=== PATIENT | female | born 1940 | race Caucasian/White ===

== ENCOUNTER 2018-04-22 19:27 | Emergency (ER) | payer MEDICARE, OTHER ==
[~2018-04-22] VITALS: Ht 162.6 cm; Wt 64.5 kg
[2018-04-22 20:23] LABS: BASOPHILS # (AUTO) 0.01 x10^3/uL (0-0.1); BASOPHILS % (AUTO) 0 % (0-1); EOSINOPHILS # (AUTO) 0.01 x10^3/uL (0-0.4); EOSINOPHILS % (AUTO) 0 % (1-7); LYMPHOCYTES # (AUTO) 0.87 x10^3/uL (1-3.4); LYMPHOCYTES % (AUTO) 8 % (22-44); MD NO; MEAN CORPUSCULAR HEMOGLOBIN 29.6 pg (27.0-34.8); MEAN PLATELET VOLUME 8.4 fL (7.4-10.4); MONOCYTES # (AUTO) 0.51 x10^3/uL (0.2-0.8); MONOCYTES % (AUTO) 5 % (2-9); NEUTROPHILS # (AUTO) 9.31 x10^3/uL (1.8-6.8); NEUTROPHILS % (AUTO) 87 % (42-75); PLATELET COUNT 262 x10^3/uL (130-400); RED BLOOD COUNT 5.08 x10^6/uL (3.82-5.3); RED CELL DISTRIBUTION WIDTH 16.6 % (9.6-15.2)
[2018-04-22 20:31] LABS: INTERNATIONAL NORMALIZED RATIO 1.01 (0.93-1.1); PROTHROMBIN TIME 10.4 Seconds (9.6-11.5)
[2018-04-22 20:32] LABS: ALANINE AMINOTRANSFERASE 20 U/L (12-78); ALBUMIN 3.1 g/dL (3.4-5.0); ANION GAP 6 mmol/L (5-15); CALCIUM 8.5 mg/dL (8.5-10.1); CHLORIDE 109 mmol/L (98-107); CREATININE 0.84 mg/dL (0.55-1.02)
[2018-04-22 20:37] LABS: ALKALINE PHOSPHATASE 108 U/L (45-117); BILIRUBIN,TOTAL 0.4 mg/dL (0.2-1.0); TOTAL PROTEIN 6.6 g/dL (6.4-8.2); TROPONIN I < 0.015 ng/mL (0.000-0.045)
[2018-04-22] MEDS ORDERED: SODIUM CHLORIDE 0.9% 1,000ML IVBOLUS ONE (21:30)
[2018-04-22] MEDS ORDERED: SODIUM CHLORIDE FLUSH 10ML SYR IVF ONE (21:30)
[2018-04-22 21:47] LABS: MICROSCOPIC INDICATED
[2018-04-22 22:05] LABS: CULTURE INDICATED? YES
[2018-04-22 22:42] VITALS: BP 152/58
== END 2018-04-22 22:46 | disposition home or self-care (01) ==
LOC: ED 21:18
DX: S30.0XXA Contusion of lower back and pelvis, initial encounter (principal); G89.11 Acute pain due to trauma; M54.5 Low back pain; R42 Dizziness and giddiness; E86.0 Dehydration; I10 Essential (primary) hypertension; I25.2 Old myocardial infarction; X58.XXXA Exposure to other specified factors, initial encounter; Y93.89 Activity, other specified; Y99.8 Other external cause status; Y92.89 Other specified places as the place of occurrence of the external cause
CPT/HCPCS: 36415; 70450; 71045; 72110; 80053; 81001; 84484; 85025; 85610; 85730; 87086; 93005; 96360; 99285; J7030

== ENCOUNTER 2018-09-14 08:25 | Inpatient (IN) | payer MEDICARE, OTHER ==
[~2018-09-14] VITALS: Ht 170.2 cm; Wt 95.0 kg
--- NOTE | 2018-09-14 08:43 | NUR ---
BIB [facility] FOUND BY FAMILY AT 0745 UNACCOOUNTED FOR TRAZADONE AND BACLAFIN TABS NOTED PURPOSFULL MOVEMENT LIMITED VERBALE RESPONSE INCONTINENT OF STOOL AND URINE PT CLEANED AND CLOTHING REMOVED VITAL SIGNS WITH IN NORMAL LIMITS
--- NOTE | 2018-09-14 09:26 | NUR ---
FAMILY TO THE BS PT RECOGNIZING FAMILY BY SIGHT REMAINS SLOW TO RESPOND
[2018-09-14] MEDS ORDERED: SODIUM CHLORIDE FLUSH 10ML SYR IVF ONE (09:30)
[2018-09-14] MEDS ORDERED: SODIUM CHLORIDE 0.9% 1,000ML IVBOLUS ONE (09:30)
[2018-09-14 10:07] LABS: BASOPHILS # (AUTO) 0.03 x10^3/uL (0-0.1); BASOPHILS % (AUTO) 0 % (0-1); EOSINOPHILS # (AUTO) 0.07 x10^3/uL (0-0.4); EOSINOPHILS % (AUTO) 1 % (1-7); LYMPHOCYTES # (AUTO) 1.39 x10^3/uL (1-3.4); LYMPHOCYTES % (AUTO) 12 % (22-44); MD NO; MEAN CORPUSCULAR HEMOGLOBIN 29.9 pg (27.0-34.8); MEAN CORPUSCULAR HGB CONC 33.9 g/dL (32.4-35.8); MEAN PLATELET VOLUME 8.1 fL (7.4-10.4); MONOCYTES # (AUTO) 0.57 x10^3/uL (0.2-0.8); MONOCYTES % (AUTO) 5 % (2-9); NEUTROPHILS # (AUTO) 9.42 x10^3/uL (1.8-6.8); NEUTROPHILS % (AUTO) 82 % (42-75); PLATELET COUNT 202 x10^3/uL (130-400); RED BLOOD COUNT 3.85 x10^6/uL (3.82-5.3); RED CELL DISTRIBUTION WIDTH 16.8 % (9.6-15.2)
[2018-09-14 10:16] LABS: ALBUMIN 2.6 g/dL (3.4-5.0); ANION GAP 5 mmol/L (5-15); CALCIUM 6.5 mg/dL (8.5-10.1); CHLORIDE 124 mmol/L (98-107)
[2018-09-14 10:19] LABS: ACETAMINOPHEN < 2 mcg/mL (10-30); ALANINE AMINOTRANSFERASE 15 U/L (12-78); ALKALINE PHOSPHATASE 82 U/L (45-117); BILIRUBIN,TOTAL 0.7 mg/dL (0.2-1.0); CREATININE 0.78 mg/dL (0.55-1.02); SALICYLATE LEVEL 3.6 mg/dL (2.8-20.0); TOTAL PROTEIN 4.9 g/dL (6.4-8.2); TROPONIN I < 0.015 ng/mL (0.000-0.045)
[2018-09-14] MEDS ORDERED: AZITHROMYCIN 500 MG in SODIUM CHLORIDE 0.9% 250 ML IV ONE (10:30)
[2018-09-14] MEDS ORDERED: CEFTRIAXONE PMX 1GM/50ML 50 ML IV ONE (10:30)
[2018-09-14] MEDS ORDERED: CALCIUM GLUCONATE 4.6 MEQ in SODIUM CHLORIDE 0.9% 50 ML IV ONE (10:30)
[2018-09-14] MEDS ORDERED: POTASSIUM CHLORIDE 40 MEQ in SODIUM CHLORIDE 0.9% 500 ML IV ONE (10:30)
[2018-09-14 10:58] LABS: MICROSCOPIC AUTO
[2018-09-14 11:03] LABS: CULTURE INDICATED? YES
[2018-09-14 11:25] LABS: AMPHETAMINE SCREEN, URINE Negative (Negative); BARBITURATE SCREEN, URINE Negative (Negative); BENZODIAZEPINE SCREEN, URINE Negative (Negative); CANNABINOID SCREEN, URINE Negative (Negative); COCAINE SCREEN, URINE Negative (Negative); METHADONE SCREEN, URINE Negative (Negative); OPIATE SCREEN, URINE Negative (Negative)
--- NOTE | 2018-09-14 12:06 | NUR ---
REPORT FROM [facility], ASSUME CARE OF PT AT THIS TIME. PT MOVED FROM TR4 TO ROOM 25. CHART REVIEWED. [facility] HAND SETTING UP AT THIS TIME. FAMILY AT BS.
[2018-09-14 12:26] LABS: HEMOGLOBIN A1C 6.3 % (4.2-6.3)
--- NOTE | 2018-09-14 12:31 | NUR ---
EEG BEING PERFORMED AT THIS TIME. HOLD ON 2ND LINE
--- NOTE | 2018-09-14 12:54 | NUR ---
ATTEMPT X 2 FOR PIV. EEG COMPLETED AT THIS TIME. ALEJANDRA [facility] TO ATTEMPT 2ND LINE.
[2018-09-14] MEDS ORDERED: NICOTINE 14MG/24 HR PATCH.TD24 ONE (13:08)
[2018-09-14] MEDS ORDERED: CEFTRIAXONE PMX 1GM/50ML 50 ML ONE (13:08)
[2018-09-14] MEDS: NICOTINE 14MG/24 HR PATCH.TD24 TD SCH (13:17)
[2018-09-14] MEDS ORDERED: ENALAPRILAT 1.25 MG/ML, 2ML ONE (13:22)
--- NOTE | 2018-09-14 13:24 | NUR ---
2ND IV ESTABLISHED, REVIEW OF ORDERS. CONFERRED WITH [facility] REGARDING BLOOD CULTURES ORDERS PRIOR TO ANTIBIOTICS. PER VERBAL ORDER, BLOOD CULTURES X 2 ORDERED-HOLD ON ANTIBIOTICS UNTIL DRAWN. VS UPDATED IN COMPUTER, PT MEDICATED PER EMAR FOR HTN. FAMILY UPDATED ON POC.
[2018-09-14] MEDS: ENALAPRILAT 1.25 MG/ML, 2ML IVPush PRN ×2 (13:29→15:34)
[2018-09-14] MEDS ORDERED: ATOR-2 PO (13:36)
[2018-09-14] MEDS ORDERED: METO50TA82 PO (13:36)
[2018-09-14] MEDS ORDERED: HYDR25TA6 PO (13:36)
[2018-09-14] MEDS ORDERED: BACL20TA PO (13:36)
[2018-09-14] MEDS ORDERED: CLOP75TA PO (13:36)
[2018-09-14] MEDS ORDERED: DIPH25CA61 PO (13:36)
[2018-09-14] MEDS ORDERED: LISI40TA PO (13:36)
--- NOTE | 2018-09-14 13:48 | NUR ---
BC X 2 DRAWN, ANTIBIOTIC STARTED.
--- NOTE | 2018-09-14 14:18 | NUR ---
ASHANTI APPLIED DUE TO FREQUENT URINARY INCONTINENCE, FUNCTIONING WELL AT THIS TIME. PT WITH EYES OPEN, ORIENTED TO PERSON ONLY AT THIS TIME BUT MORE ALERT. FAMILY AT BS.
[2018-09-14] MEDS: INSULIN LISPRO 100 UNITS/ML, PEN SQ-INSULIN SCH ×3 (14:29→21:15)
--- NOTE | 2018-09-14 14:43 | NUR ---
REPORT TO [facility], PT TRANSPORTED TO FLOOR.
[2018-09-14 15:08] VITALS: BP 191/80
[2018-09-14 16:17] VITALS: BP 197/82
[2018-09-14 16:30] LABS: ANION GAP 4 mmol/L (5-15); CALCIUM 8.5 mg/dL (8.5-10.1); CHLORIDE 119 mmol/L (98-107); CREATININE 0.76 mg/dL (0.55-1.02)
[2018-09-14 17:20] VITALS: BP 137/95
[2018-09-14] MEDS ORDERED: LISINOPRIL 20 MG TABLET PO ONE (18:00)
[2018-09-14] MEDS: AMLODIPINE 5 MG TABLET PO SCH (18:11)
[2018-09-14 20:50] VITALS: BP 212/82
[2018-09-14] MEDS: ATORVASTATIN 80 MG TABLET PO SCH (21:14)
[2018-09-14] MEDS: hydrALAzine 20 MG/ML, 1ML IVPush PRN (21:14)
[2018-09-14 22:10] VITALS: BP 132/70
[2018-09-15] VITALS (9 sets, daily range): BP systolic 128–197; BP diastolic 66–80
[2018-09-15 04:24] LABS: BASOPHILS # (AUTO) 0.05 x10^3/uL (0-0.1); BASOPHILS % (AUTO) 0 % (0-1); EOSINOPHILS # (AUTO) 0.01 x10^3/uL (0-0.4); EOSINOPHILS % (AUTO) 0 % (1-7); LYMPHOCYTES % (AUTO) 19 % (22-44); MD NO; MEAN CORPUSCULAR HGB CONC 32.9 g/dL (32.4-35.8); MEAN CORPUSCULAR VOLUME 88.2 fL (80-100); MEAN PLATELET VOLUME 8.7 fL (7.4-10.4); MONOCYTES # (AUTO) 0.59 x10^3/uL (0.2-0.8); MONOCYTES % (AUTO) 5 % (2-9); NEUTROPHILS # (AUTO) 9.99 x10^3/uL (1.8-6.8); NEUTROPHILS % (AUTO) 76 % (42-75); PLATELET COUNT 299 x10^3/uL (130-400); RED CELL DISTRIBUTION WIDTH 16.8 % (9.6-15.2)
[2018-09-15 04:29] LABS: ALBUMIN 3.3 g/dL (3.4-5.0); ANION GAP 5 mmol/L (5-15); CALCIUM 8.6 mg/dL (8.5-10.1); CHLORIDE 117 mmol/L (98-107); CREATININE 0.96 mg/dL (0.55-1.02)
[2018-09-15 04:41] LABS: ALANINE AMINOTRANSFERASE 17 U/L (12-78); ALKALINE PHOSPHATASE 92 U/L (45-117); TOTAL PROTEIN 6.4 g/dL (6.4-8.2)
[2018-09-15] MEDS: INSULIN LISPRO 100 UNITS/ML, PEN SQ-INSULIN SCH ×4 (07:54→19:56)
[2018-09-15] MEDS ORDERED: NICOTINE 21 MG/24 HR PATCH.TD24 TD ONE (09:30)
[2018-09-15] MEDS: CLOPIDOGREL 75 MG TABLET PO SCH (10:26)
[2018-09-15] MEDS: AMLODIPINE 5 MG TABLET PO SCH (10:27)
[2018-09-15] MEDS: LISINOPRIL 20 MG TABLET PO SCH (10:27)
[2018-09-15] MEDS: CEFTRIAXONE PMX 1GM/50ML 50 ML IV SCH (10:27)
[2018-09-15] MEDS ORDERED: AZITHROMYCIN 500 MG in SODIUM CHLORIDE 0.9% 250 ML IV SCH (11:30)
[2018-09-15] MEDS: NICOTINE 14MG/24 HR PATCH.TD24 TD SCH (12:13)
[2018-09-15] MEDS: SODIUM CHLORIDE 0.9% 1,000 ML IV SCH (14:30)
[2018-09-15] MEDS: ENALAPRILAT 1.25 MG/ML, 2ML IVPush PRN (19:33)
[2018-09-15] MEDS: hydrALAzine 20 MG/ML, 1ML IVPush PRN (21:01)
[2018-09-15] MEDS: ATORVASTATIN 80 MG TABLET PO SCH (21:05)
[2018-09-16] MEDS: KETOROLAC 30 MG/1 ML IV PRN ×2 (00:03→08:40)
[2018-09-16 00:28] VITALS: BP 188/69
[2018-09-16 01:31] VITALS: BP 147/73
[2018-09-16 05:31] LABS: BASOPHILS # (AUTO) 0.06 x10^3/uL (0-0.1); BASOPHILS % (AUTO) 1 % (0-1); EOSINOPHILS # (AUTO) 0.13 x10^3/uL (0-0.4); EOSINOPHILS % (AUTO) 1 % (1-7); LYMPHOCYTES # (AUTO) 3.02 x10^3/uL (1-3.4); LYMPHOCYTES % (AUTO) 25 % (22-44); MD NO; MEAN CORPUSCULAR HEMOGLOBIN 29.6 pg (27.0-34.8); MEAN CORPUSCULAR HGB CONC 33.8 g/dL (32.4-35.8); MEAN CORPUSCULAR VOLUME 87.5 fL (80-100); MEAN PLATELET VOLUME 8.6 fL (7.4-10.4); MONOCYTES % (AUTO) 8 % (2-9); NEUTROPHILS # (AUTO) 7.72 x10^3/uL (1.8-6.8); NEUTROPHILS % (AUTO) 65 % (42-75); PLATELET COUNT 248 x10^3/uL (130-400); RED BLOOD COUNT 4.94 x10^6/uL (3.82-5.3)
[2018-09-16 05:41] LABS: ANION GAP 6 mmol/L (5-15); CALCIUM 8.4 mg/dL (8.5-10.1); CHLORIDE 119 mmol/L (98-107); CREATININE 0.89 mg/dL (0.55-1.02)
[2018-09-16 07:59] VITALS: BP 162/73
[2018-09-16] MEDS ORDERED: CEFD300C37 PO (08:15)
[2018-09-16] MEDS: INSULIN LISPRO 100 UNITS/ML, PEN SQ-INSULIN SCH (08:17)
[2018-09-16 08:35] VITALS: BP 125/75
[2018-09-16] MEDS: AMLODIPINE 5 MG TABLET PO SCH (08:36)
[2018-09-16] MEDS: LISINOPRIL 20 MG TABLET PO SCH (08:36)
[2018-09-16] MEDS: SODIUM CHLORIDE 0.9% 1,000 ML IV SCH (08:36)
[2018-09-16] MEDS: CLOPIDOGREL 75 MG TABLET PO SCH (08:36)
[2018-09-16] MEDS: CEFTRIAXONE PMX 1GM/50ML 50 ML IV SCH (09:23)
== END 2018-09-16 10:23 | disposition home or self-care (01) | DRG 917 ==
LOC: ED 11:23 → EDIP 11:24 → ED 11:30 → 4WST 14:52
PROVIDERS: ADMIT Hospitalist; ATTEND Hospitalist
PROC: 0T9B70Z Drainage of Bladder with Drainage Device, Via Natural or Artificial Opening (ICD-10-PCS; principal; 2018-09-14)
DX: T42.8X1A Poisoning by antiparkinsonism drugs and other central muscle-tone depressants, accidental (unintentional), initial encounter (principal); G92 Toxic encephalopathy; J69.0 Pneumonitis due to inhalation of food and vomit; E87.0 Hyperosmolality and hypernatremia; I10 Essential (primary) hypertension; E11.9 Type 2 diabetes mellitus without complications; I25.2 Old myocardial infarction; F17.210 Nicotine dependence, cigarettes, uncomplicated; E86.0 Dehydration; E83.51 Hypocalcemia; E86.1 Hypovolemia; D72.829 Elevated white blood cell count, unspecified; B96.20 Unspecified Escherichia coli [E. coli] as the cause of diseases classified elsewhere; E87.6 Hypokalemia; E78.5 Hyperlipidemia, unspecified; R15.9 Full incontinence of feces; I25.10 Atherosclerotic heart disease of native coronary artery without angina pectoris; Z95.5 Presence of coronary angioplasty implant and graft; Y92.89 Other specified places as the place of occurrence of the external cause; Z83.42 Family history of familial hypercholesterolemia; Z91.14 Patient's other noncompliance with medication regimen; Z90.49 Acquired absence of other specified parts of digestive tract; Z79.899 Other long term (current) drug therapy; Z23 Encounter for immunization
CPT/HCPCS: 36415; 36600; 70450; 71045; 80048; 80053; 80307; 80329; 81001; 82140; 82803; 82962; 83036; 84484; 85025; 87040; 87077; 87086; 87186; 90656; 93005; 95819; 96361; 96365; 96367; 99291; G0378; J0456; J0610; J0696; J1885; J3480; G0480; J0360; J1815; J7030; J7040; J7050